=== PATIENT | male | born 1980 | race Caucasian/White ===

== ENCOUNTER 2018-09-13 13:56 | Emergency (ER) | payer SELFPAY ==
[~2018-09-13] VITALS: Wt 81.2 kg
[2018-09-13 13:57] VITALS: BP 172/106; PULSE 98; RESP 20
--- NOTE | 2018-09-13 14:45 | ERD ---
ER Documentation Chief Complaint Chief Complaint lac to r. thumb with table saw, nab. HPI 38 years old male, right-handed, presents to the emergency department, complaining of right thumb laceration that occurred more than 24 hours ago with a table saw. No active bleeding. The patient denies distal numbness or tin gling. The patient cleaned and irrigated the wound with water and soap. He had a tetanus shot 2 months ago. ROS All systems reviewed and are negative except as per history of present illness. Allergies Allergies: Coded Allergies: No Known Allergy (Unverified , 09/13/18) PMhx/Soc Hx Alcohol Use: No Hx Substance Use: No Hx Tobacco Use: No Smoking Status: Never smoker FmHx Family History: No diabetes, No coronary disease Physical Exam Vitals Vital Signs Date Temp Pulse Resp B/P (MAP) Pulse Ox O2 O2 Flow FiO2 Time Delivery Rate 09/13/18 97.4 98 20 172/106 100 13:57 (128) Physical Exam Const: No acute distress Head: Atraumatic Eyes: Normal Conjunctiva ENT: Normal External Ears, Nose and Mouth. Neck: Full range of motion. No meningismus. Resp: Clear to auscultation bilaterally Cardio: Regular rate and rhythm, no murmurs Abd: Soft, non tender, non distended. Normal bowel sounds Skin: No petechiae or rashes Back: No midline or flank tenderness Ext: No cyanosis, or edema Right hand: First digit: Transverse linear laceration compromising the distal edge of the nail, 1 cm, no active bleeding, distal neurovascular exam intact. Neur: Awake and alert Psych: Normal Mood and Affect Procedures/MDM Vital signs stable, low suspicion for tendon injury, open fracture, foreign body. Neurovascular exam intact. Procedure: Laceration repair The procedure was explained and consent obtained. Anesthesia: none Location: Right thumb Tendon/Joint/Nerves: No injury Foreign body: None detected after copious irrigation and exploration Technique: Tissue adhesive Complexity: No subcutaneous sutures/mucosal r epair/edge excision Post Closure Length: 1 cm The patient tolerated the procedure well without complications. clinical impression and possible complications like infection and a scar where discussed with the patient who agree with management. The patient is stable to be treated outpatient and will be discharged home with a Rx for Tylenol, some side effects of prescribed medications (headache, rash, nausea, vomiting, diarrhea, interactions with other medications) were reviewed. The patient was instructed to follow up with the primary care provider in the next 48h. If symptoms persist, worsen or new symptoms develop, then patient should return to the ED immediately. Instructions explained and given directly by me to the patient with acknowledgment and demonstrated understanding. Disclaimer: Inadvertent spelling and grammatical errors are likely due to EHR/dictation software use and do not reflect on the overall quality of patient care. Also, please note that the electronic time recorded on this note does not necessarily reflect the actual time of the patient encounter. Departure Diagnosis: Primary Impression: Laceration of right thumb Condition: Stable Additional Instructions: Muchas shayy por [facility] para holliday servicio. Esperamos que en holliday visita a la terrie de emergencia holliday problema medico haya sido solucionado y que se sienta mucho mejor. Para estar seguros que holliday mejoria sigue en proceso, le pedimos el favor de hacer snow han de seguimiento medico con holliday doctor primario en los proximos 2-4 espana. Lleve con usted estos documentos y las medicinas recetadas. Si saleem sintomas empeoran, NO SE ESPERE, por favor regrese a terrie de emergencia INMEDIATAMENTE. En dolly que usted no tenga un mdico de atencin primaria: Llame al mdico o clnica comunitaria de referencia que aparece abajo abby las horas de consultorio para hacer snow han para que le vean. CLINICAS: [facility] [phone] [facility] [phone] [facility] [phone] [facility] [phone] [facility] [phone] [facility]. [phone] [address] MD Sep 13, 2018 14:45
[2018-09-13] MEDS ORDERED: CEPH-443 PO (14:57)
== END 2018-09-13 15:18 | disposition home or self-care (01) ==
LOC: FTE 13:56
DX: S61.011A Laceration without foreign body of right thumb without damage to nail, initial encounter (principal); W27.0XXA Contact with workbench tool, initial encounter; Y92.9 Unspecified place or not applicable